=== PATIENT | female | born 1985 | race Caucasian/White ===

== ENCOUNTER 2024-09-02 09:44 | Inpatient (IN) | payer OTHER ==
[2024-09-02] MEDS: ELECTROLYTE-148 SOLN 1,000 ML IV SCH (11:00)
[2024-09-02 11:30] LABS: BASO % 0.5 % (0-2.0); EOS % 0.5 % (0-4.5); HEMATOCRIT 32.9 % (32.4-45.2); HEMOGLOBIN 10.9 GM/dL (10.7-15.3); LYMPH % 19.6 % (8-40); MCH 24.6 pg (25.7-33.7); MCHC 33.2 g/dl (32.0-36.0); MEAN PLT VOLUME 8.5 fl (7.5-11.1); MONO % 5.7 % (3.8-10.2); NEUT % 73.7 % (42.8-82.8); PLATELET COUNT 218 10^3/uL (134-434); RBC 4.45 M/mm3 (3.60-5.2); RDW 17.7 % (11.6-15.6)
[2024-09-02 11:38] LABS: INR 0.9 (0.83-1.09); PROTHROMBIN TIME (PATIENT) 10.2 SEC (9.7-13.0)
[2024-09-02 11:41] LABS: ACTIVATED PTT 25.9 SECONDS (25.2-36.5)
[2024-09-02 11:45] LABS: POTASSIUM 4.1 mmol/L (3.5-5.1)
[2024-09-02] MEDS: OXYTOCIN 30 UNITS in 0.9% NS 30 UNIT/500 ML INFUS.BAG IVPB SCH (11:45)
[2024-09-02 11:46] LABS: CALCIUM 8.3 mg/dL (8.5-10.1)
[2024-09-02 11:47] LABS: BLOOD UREA NITROGEN 13.7 mg/dL (7-18)
[2024-09-02 11:50] LABS: CREATININE 0.6 mg/dL (0.55-1.3)
[2024-09-02 12:40] LABS: HIV INTERPRETATION NEGATIVE (NEGATIVE)
[2024-09-02] MEDS ORDERED: FENTANYL/BUPIVACAINE/NS/PF - PCEA - 50 ML DISP.SYRIN EP ONE ×2 (15:59→21:22)
[2024-09-02] MEDS ORDERED: FENTANYL CITRATE/PF 50 MCG/ML VIAL ONE (16:07)
[2024-09-02] MEDS: FENTANYL/BUPIVACAINE/NS/PF - PCEA - 50 ML DISP.SYRIN EP SCH (16:25)
[2024-09-02] MEDS ORDERED: NALOXONE HCL 0.4 MG/ML VIAL IVPUSH PRN (16:41)
[2024-09-02] MEDS ORDERED: OXYTOCIN 20 UNITS in 0.9% NS 20 UNIT/1,000 ML INFUS.BAG IV ONE (23:26)
[2024-09-02] MEDS ORDERED: LIDOCAINE HCL 1% PRESERVATIVE FREE - 30ML VIAL ONE (23:26)
[2024-09-03] MEDS: OXYTOCIN 20 UNITS in 0.9% NS 20 UNIT/1,000 ML INFUS.BAG IV SCH (01:40)
[2024-09-03 01:42] VITALS: BMI 30.8
[2024-09-03] MEDS ORDERED: BENZOCAINE 20% 57 GM BOTTLE TP PRN (01:53)
[2024-09-03] MEDS ORDERED: BENZOCAINE 28 GM HEMORRHOIDAL OINTMENT TP PRN (01:53)
[2024-09-03] MEDS ORDERED: oxyCODONE HCL 5 MG TABLET PO PRN (01:53)
[2024-09-03] MEDS ORDERED: BISACODYL 10 MG SUPP.RECT RC PRN (01:53)
[2024-09-03] MEDS ORDERED: ACETAMINOPHEN 325 MG TABLET (FP) PO PRN (01:53)
[2024-09-03] MEDS ORDERED: WITCH HAZEL 50% (TUCKS) 40 PAD/JAR PAD TP PRN (01:53)
[2024-09-03] MEDS: BUTORPHANOL TARTRATE 2 MG/ML VIAL IVPB ONE (02:08)
[2024-09-03] MEDS: PROMETHAZINE HCL 25 MG/1 ML VIAL IVPB ONE (02:08)
[2024-09-03 02:13] LABS: CORD HCO3 21.2 mmHg (20-29); CORD HCO3 21.7 mmHg (20-29); CORD PCO2 46.9 mmHg (30-78); CORD PCO2 47.9 mmHg (30-78); CORD pH 7.273 (7.14-7.44)
[2024-09-03] MEDS: METHYLERGONOVINE MALEATE 0.2 MG/1 ML AMP IM PRN (02:49)
[2024-09-04 07:24] LABS: BASO % 0.4 % (0-2.0); EOS % 0.9 % (0-4.5); HEMATOCRIT 30.2 % (32.4-45.2); HEMOGLOBIN 9.9 GM/dL (10.7-15.3); LYMPH % 18.2 % (8-40); MCH 24.4 pg (25.7-33.7); MCHC 32.9 g/dl (32.0-36.0); MEAN CELL VOLUME 74.2 fl (80-96); MEAN PLT VOLUME 8.2 fl (7.5-11.1); MONO % 5.1 % (3.8-10.2); NEUT % 75.4 % (42.8-82.8); PLATELET COUNT 197 10^3/uL (134-434); RBC 4.08 M/mm3 (3.60-5.2); RDW 18.5 % (11.6-15.6); WHITE BLOOD COUNT 9.9 K/mm3 (4.0-10.0)
[2024-09-04] MEDS: IBUPROFEN 600 MG TABLET (FP) PO PRN (12:03)
[2024-09-04] MEDS ORDERED: SENNOSIDES/DOCUSATE COMBO (SENNA PLUS) TABLET (UD) PO PRN (22:00)
[2024-09-05 09:12] VITALS: BP 101/66; PULSE 74; RESP 18; TEMP 97.7
== END 2024-09-05 13:15 | disposition home or self-care (01) | DRG 560 ==
LOC: JLDR 09:44 → J3W 09-03 03:53
PROVIDERS: ADMIT Family Medicine; ATTEND Family Medicine
PROC: 10D07Z6 Extraction of Products of Conception, Vacuum, Via Natural or Artificial Opening (ICD-10-PCS; principal; 2024-09-03)
DX: O75.81 Maternal exhaustion complicating labor and delivery (principal); O48.0 Post-term pregnancy; Z3A.40 40 weeks gestation of pregnancy; Z37.0 Single live birth
CPT/HCPCS: 36415; 36600; 59409; 80048; 82803; 85025; 85610; 85730; 86780; 86850; 86900; 86901; 87389